=== PATIENT | female | born 1985 | race Caucasian/White ===

== ENCOUNTER 2017-03-19 09:44 | Emergency (ER) | payer OTHER ==
[~2017-03-19] VITALS: Ht 165.1 cm; Wt 55.0 kg
[~2017-03-19 09:44] MED LIST: AMOXICILLIN500 MG PO; CONCEPT OB PO; FLUZONE SPLT1 M1 IM; MOTRIN800 MG/TAB PO; ONDANSETRON ODT8 MG PO; PENICILLN VK500 M1 OR; PENICILLN VK500 MG OR; PERCOCET 5/325M1 TAB OR; TUBERSOL5 MG/0.1 M ID; ULTRAM50 M1 OR; ULTRAM50 M1 PO
[2017-03-19] MEDS ORDERED: NAPROSYN500 MG PO (10:14)
[2017-03-19] MEDS ORDERED: PENICILLN VK500 MG PO (10:14)
[2017-03-19 10:20] VITALS: BP 121/84
== END 2017-03-19 10:20 | disposition home or self-care (01) | DRG 159 ==
LOC: ED 09:44
DX: K04.7 Periapical abscess without sinus (principal); K08.89 Other specified disorders of teeth and supporting structures

== ENCOUNTER 2018-12-18 11:44 | Emergency (ER) | payer OTHER ==
[~2018-12-18] VITALS: Ht 162.6 cm; Wt 73.4 kg
[~2018-12-18 11:44] MED LIST changes: +NAPROSYN500 MG PO; +PENICILLN VK500 MG PO
[2018-12-18] MEDS ORDERED: CORTISPORIN OTI10 M2 AU (12:22)
[2018-12-18] MEDS ORDERED: ZITHROMAX250 MG PO (12:22)
[2018-12-18] MEDS ORDERED: TORADOL PO (12:22)
[2018-12-18 12:25] VITALS: BP 125/90
== END 2018-12-18 12:25 | disposition home or self-care (01) ==
LOC: ED 11:44
DX: H66.91 Otitis media, unspecified, right ear (principal); J06.9 Acute upper respiratory infection, unspecified; R05 Cough; H92.01 Otalgia, right ear

== ENCOUNTER 2019-02-22 13:08 | Emergency (ER) | payer OTHER ==
[~2019-02-22] VITALS: Ht 162.6 cm; Wt 80.0 kg
[~2019-02-22 13:08] MED LIST changes: +CORTISPORIN OTI10 M2 AU; +TORADOL PO; +ZITHROMAX250 MG PO
[2019-02-22 15:05] VITALS: BP 111/78
== END 2019-02-22 15:05 | disposition left against medical advice (07) | DRG 951 ==
LOC: ED 13:08 → LWOBS 13:43
DX: Z91.19 Patient's noncompliance with other medical treatment and regimen (principal)

== ENCOUNTER 2019-04-09 12:55 | Emergency (ER) | payer OTHER ==
[~2019-04-09] VITALS: Ht 162.6 cm; Wt 75.0 kg
[2019-04-09] MEDS ORDERED: TORADOL PO (13:08)
[2019-04-09] MEDS ORDERED: ULTRAM50 M1 PO (13:08)
[2019-04-09] MEDS ORDERED: AMOXICILLIN500 MG PO (13:08)
[2019-04-09 13:12] VITALS: BP 141/88
== END 2019-04-09 13:12 | disposition home or self-care (01) ==
LOC: ED 12:55
DX: K04.7 Periapical abscess without sinus (principal); M84.68XA Pathological fracture in other disease, other site, initial encounter for fracture

== ENCOUNTER 2020-01-27 | Emergency (ER) | payer OTHER ==
[2020-01-27] MEDS ORDERED: AMOXICILLIN500 M2 PO (09:57)
== END 2020-01-27 10:07 | disposition home or self-care (01) ==
DX: J02.0 Streptococcal pharyngitis (principal)

== ENCOUNTER 2020-02-20 17:32 | Emergency (ER) | payer OTHER ==
[~2020-02-20] VITALS: Ht 162.6 cm; Wt 70.0 kg
[~2020-02-20 17:32] MED LIST changes: +AMOXICILLIN500 M2 PO
[2020-02-20 18:37] LABS: URINE BILIRUBIN - DIPSTICK NEGATIVE (NEGATIVE); URINE BLOOD DIPSTICK NEGATIVE (NEGATIVE); URINE COLOR YELLOW; URINE GLUCOSE - DIPSTICK NEGATIVE (NEGATIVE); URINE KETONE NEGATIVE (NEGATIVE); URINE LEUK ESTERASE MODERATE (NEGATIVE); URINE NITRITE - DIPSTICK NEGATIVE (Negative); URINE PH 6.5 (4.5-8.0); URINE PROTEIN - DIPSTICK NEGATIVE (NEG-TRACE); URINE UROBILINOGEN - DIPSTICK 0.2 E.U./dL (0.2)
[2020-02-20 18:39] LABS: BARBITURATES NEGATIVE (NEGATIVE); COCAINE NEGATIVE (NEGATIVE); METHADONE NEGATIVE (NEGATIVE); TETRAHYDROCANNABIONOL POSITIVE (NEGATIVE); TRICYLIC ANTIDEPRESSANTS NEGATIVE (NEGATIVE)
[2020-02-20 18:40] LABS: OXCYCODONE NEGATIVE (NEGATIVE)
[2020-02-20 18:43] LABS: URINE SQUAMOUS EPITHELIAL CELL FEW EPI/hpf (0-FEW)
[2020-02-20 18:44] LABS: URINE BACTERIA RARE hpf
[2020-02-20] MEDS ORDERED: KEFLEX500 M1 PO (19:49)
[2020-02-20 20:03] VITALS: BP 101/74
== END 2020-02-20 20:03 | disposition home or self-care (01) ==
LOC: ED 17:32
DX: G44.209 Tension-type headache, unspecified, not intractable (principal); N39.0 Urinary tract infection, site not specified; R51 Headache

== ENCOUNTER 2021-01-03 16:57 | Emergency (ER) | payer OTHER ==
[~2021-01-03] VITALS: Ht 162.6 cm; Wt 75.0 kg
[~2021-01-03 16:57] MED LIST changes: +KEFLEX500 M1 PO
[2021-01-03 17:45] LABS: URINE BILIRUBIN - DIPSTICK NEGATIVE (NEGATIVE); URINE BLOOD DIPSTICK NEGATIVE (NEGATIVE); URINE CLARITY CLEAR; URINE COLOR YELLOW; URINE GLUCOSE - DIPSTICK NEGATIVE (NEGATIVE); URINE KETONE NEGATIVE (NEGATIVE); URINE LEUK ESTERASE NEGATIVE (Negative); URINE NITRITE - DIPSTICK NEGATIVE (Negative); URINE PH 6.5 (4.5-8.0); URINE PROTEIN - DIPSTICK NEGATIVE (NEG-TRACE); URINE SPECIFIC GRAVITY 1.025; URINE UROBILINOGEN - DIPSTICK 0.2 E.U./dL (0.2)
[2021-01-03] MEDS ORDERED: TRAMADOL HYDROC50 MG PO (19:37)
[2021-01-03] MEDS ORDERED: CYCLOBENZAPRINE10 MG PO (19:37)
[2021-01-03 19:48] VITALS: BP 125/85
== END 2021-01-03 19:48 | disposition home or self-care (01) ==
LOC: ED 16:57
DX: S29.012A Strain of muscle and tendon of back wall of thorax, initial encounter (principal); X50.3XXA Overexertion from repetitive movements, initial encounter; Y93.89 Activity, other specified; Y92.89 Other specified places as the place of occurrence of the external cause; Y99.0 Civilian activity done for income or pay